=== PATIENT | female | born 1965 | race Caucasian/White ===

== ENCOUNTER 2025-06-22 14:54 | Inpatient (IN) | payer MEDICARE, OTHER ==
[~2025-06-22] VITALS: Ht 167.6 cm; Wt 90.1 kg
[2025-06-22] VITALS (13 sets, daily range): BP systolic 96–137; BP diastolic 54–74; PULSE 56–96; RESP 13–18; TEMP 98.7; O2SAT 63–97
[2025-06-22] MEDS ORDERED: SODIUM BICARBONATE 50 MEQ/50 ML VIAL ONE (15:01)
[2025-06-22] MEDS ORDERED: TICAGRELOR 90 MG TABLET ONE (15:01)
[2025-06-22] MEDS ORDERED: ATORVASTATIN CALCIUM 40 MG TABLET ONE (15:01)
[2025-06-22] MEDS ORDERED: IOHEXOL 300 MG/ML 100 ML VIAL ONE (15:01)
[2025-06-22] MEDS ORDERED: LIDOCAINE/PF 1% 30 ML VIAL ONE (15:01)
[2025-06-22] MEDS ORDERED: HEPARIN SODIUM,PORCINE 5,000 UNITS/ML VIAL ONE (15:01)
[2025-06-22] MEDS ORDERED: ASPIRIN 81 MG CHEWABLE TABLET ONE (15:02)
[2025-06-22] MEDS: HEPARIN SODIUM,PORCINE 5,000 UNITS/ML VIAL IVP ONE (15:07)
[2025-06-22] MEDS: ATORVASTATIN CALCIUM 40 MG TABLET PO ONE (15:07)
[2025-06-22] MEDS: TICAGRELOR 90 MG TABLET PO ONE (15:07)
[2025-06-22 15:13] LABS: PLATELET COUNT (AUTO) 274 K/uL (150-450); RED BLOOD CELL COUNT(AUTO) 4.47 MIL/uL (4.00-5.20); RED CELL DISTRIBUTION WIDTH 15.3 % (11.5-14.5); WHITE BLOOD COUNT (AUTO) 15.6 K/uL (4.5-11.0)
[2025-06-22 15:24] LABS: CALCIUM, TOTAL 8.9 mg/dL (8.8-10.5); CREATININE 0.78 mg/dL (0.60-1.30); GLOMERULAR FILTR. RATE CALC > 60 mL/min (>60); GLUCOSE,RANDOM 98 mg/dL (70-110); SODIUM SERUM 142 mmol/L (136-145); UREA NITROGEN, BLOOD 14 mg/dL (7-18)
[2025-06-22 15:28] LABS: ASPARTATE AMINOTRANSFERASE 12.0 U/L (15-37); CREATINE KINASE, TOTAL ONLY 50.0 U/L (26-192); TOTAL PROTEIN, SERUM 7.3 g/dL (6.4-8.2)
[2025-06-22 15:32] LABS: TROPONIN I-HIGH SENSITIVITY 17 ng/L (<51)
[2025-06-22] MEDS: IOHEXOL 300 MG/ML 100 ML VIAL IARTER ONE ×2 (15:47→15:55)
[2025-06-22] MEDS: LIDOCAINE 1% 30 ML/SOD BICARB 8.4% 4 ML SQ ONE (15:47)
[2025-06-22] MEDS: HEPARIN SODIUM,PORCINE 1,000 UNITS/ML 10 ML VIAL IVP ONE ×3 (15:48→16:13)
[2025-06-22] MEDS: HEPARIN SODIUM 1000 UNITS/NS 1,000 ML IARTER ONE (15:48)
[2025-06-22] MEDS ORDERED: DEXTROSE 50%-WATER 25 GM/50 ML SYRINGE IVP PRN (16:15)
[2025-06-22] MEDS ORDERED: ACETAMINOPHEN 325 MG TABLET PO PRN (16:15)
[2025-06-22] MEDS ORDERED: ONDANSETRON HCL 4 MG/2 ML VIAL IVP PRN (16:15)
[2025-06-22] MEDS ORDERED: MORPHINE SULFATE 2 MG/ML SYRINGE IVP PRN (16:15)
[2025-06-22] MEDS ORDERED: INSULIN LISPRO 100 UNITS/ML SQ PRN (16:15)
[2025-06-22 17:16] LABS: CHOL/HDL RATIO 3.3 (3.9-5.7); LDL CHOL (CALC.) 86.0 mg/dL (0-130)
[2025-06-22 18:50] LABS: GLUCOMETER DEV NAME(LOC) ICUN.6; GLUCOSE,POINT OF CARE 109 MG/DL (70-110)
[2025-06-22] MEDS ORDERED: POTASSIUM CHL 10 MEQ/WATER 50 ML IV PRN (19:00)
[2025-06-22] MEDS ORDERED: POTASSIUM CHLORIDE 20 MEQ ER TABLET PO PRN (19:00)
[2025-06-22] MEDS: POTASSIUM CHLORIDE 20 MEQ ER TABLET PO PRN (19:44)
[2025-06-22 21:20] LABS: GLUCOMETER DEV NAME(LOC) ICU.S7; GLUCOSE,POINT OF CARE 106 MG/DL (70-110)
[2025-06-22] MEDS: DOCUSATE SODIUM 100 MG CAPSULE PO SCH (22:09)
[2025-06-22] MEDS: TICAGRELOR 90 MG TABLET PO SCH (22:09)
[2025-06-22] MEDS: CHLORHEXIDINE GLUCONATE 2% TOWELETTE [2'S/6'S] TP SCH (22:10)
[2025-06-23] VITALS (14 sets, daily range): BP systolic 109–131; BP diastolic 68–83; PULSE 58–79; RESP 15–21; TEMP 98–99.2; O2SAT 95–100
[2025-06-23 05:55] LABS: PLATELET COUNT (AUTO) 192 K/uL (150-450); RED BLOOD CELL COUNT(AUTO) 4.14 MIL/uL (4.00-5.20); RED CELL DISTRIBUTION WIDTH 15.4 % (11.5-14.5); WHITE BLOOD COUNT (AUTO) 9.5 K/uL (4.5-11.0)
[2025-06-23 06:15] LABS: ASPARTATE AMINOTRANSFERASE 40 U/L (15-37); CALCIUM, TOTAL 8.5 mg/dL (8.8-10.5); CREATININE 0.64 mg/dL (0.60-1.30); GLOMERULAR FILTR. RATE CALC > 60 mL/min (>60); GLUCOSE,RANDOM 90 mg/dL (70-110); SODIUM SERUM 141 mmol/L (136-145); TOTAL PROTEIN, SERUM 6.5 g/dL (6.4-8.2); UREA NITROGEN, BLOOD 11 mg/dL (7-18)
[2025-06-23 06:20] LABS: TROPONIN I-HIGH SENSITIVITY 12893 ng/L (<51)
[2025-06-23 07:20] LABS: GLUCOMETER DEV NAME(LOC) ICUN.6; GLUCOSE,POINT OF CARE 97 MG/DL (70-110)
[2025-06-23] MEDS: PANTOPRAZOLE SODIUM 40 MG/VIAL IVP SCH (09:07)
[2025-06-23] MEDS: ASPIRIN 81 MG CHEWABLE TABLET PO SCH (09:07)
[2025-06-23] MEDS: ATORVASTATIN CALCIUM 40 MG TABLET PO SCH (09:07)
[2025-06-23] MEDS: LOSARTAN POTASSIUM 25 MG TABLET PO SCH (09:09)
[2025-06-23 12:11] LABS: GLUCOMETER DEV NAME(LOC) ICUN.6; GLUCOSE,POINT OF CARE 95 MG/DL (70-110)
[2025-06-23 18:05] LABS: GLUCOMETER DEV NAME(LOC) 5N.2C; GLUCOSE,POINT OF CARE 119 MG/DL (70-110)
[2025-06-24 04:03] VITALS: BP 109/66; PULSE 75; RESP 17; TEMP 98.7; O2SAT 98
[2025-06-24 04:21] LABS: GLUCOMETER DEV NAME(LOC) 5N.2C; GLUCOSE,POINT OF CARE 121 MG/DL (70-110)
[2025-06-24 06:31] LABS: PLATELET COUNT (AUTO) 198 K/uL (150-450); RED BLOOD CELL COUNT(AUTO) 4.46 MIL/uL (4.00-5.20); RED CELL DISTRIBUTION WIDTH 15.5 % (11.5-14.5); WHITE BLOOD COUNT (AUTO) 10.1 K/uL (4.5-11.0)
[2025-06-24 06:47] LABS: CALCIUM, TOTAL 8.5 mg/dL (8.8-10.5); CREATININE 0.72 mg/dL (0.60-1.30); GLOMERULAR FILTR. RATE CALC > 60 mL/min (>60); GLUCOSE,RANDOM 89 mg/dL (70-110); SODIUM SERUM 141 mmol/L (136-145); UREA NITROGEN, BLOOD 11 mg/dL (7-18)
[2025-06-24 07:31] VITALS: BP 114/82; PULSE 74; RESP 18; TEMP 98; O2SAT 97
[2025-06-24] MEDS ORDERED: ASPI-1450 PO (11:11)
[2025-06-24] MEDS ORDERED: ATOR40TA28 PO (11:12)
[2025-06-24] MEDS ORDERED: TICA90TA PO (11:12)
[2025-06-24] MEDS ORDERED: LOSA-381 PO (11:13)
[2025-06-24 11:24] VITALS: BP 122/73; PULSE 70; RESP 18; TEMP 98; O2SAT 98
[2025-06-24 20:21] LABS: GLUCOMETER DEV NAME(LOC) 5N.2C; GLUCOSE,POINT OF CARE 100 MG/DL (70-110)
== END 2025-06-24 12:05 | disposition home or self-care (01) | DRG 322 ==
LOC: EMS 14:54 → EDH 16:10 → ICU 17:00 → 5N 06-23 14:15
PROVIDERS: ADMIT Internal Medicine; ATTEND Internal Medicine
PROC: 02703DZ Dilation of Coronary Artery, One Artery with Intraluminal Device, Percutaneous Approach (ICD-10-PCS; principal; 2025-06-22)
PROC: 4A023N7 Measurement of Cardiac Sampling and Pressure, Left Heart, Percutaneous Approach (ICD-10-PCS; 2025-06-22)
PROC: B2111ZZ Fluoroscopy of Multiple Coronary Arteries using Low Osmolar Contrast (ICD-10-PCS; 2025-06-22)
PROC: B2151ZZ Fluoroscopy of Left Heart using Low Osmolar Contrast (ICD-10-PCS; 2025-06-22)
PROC: 5A09357 Assistance with Respiratory Ventilation, Less than 24 Consecutive Hours, Continuous Positive Airway Pressure (ICD-10-PCS; 2025-06-22)
DX: I21.09 ST elevation (STEMI) myocardial infarction involving other coronary artery of anterior wall (principal); E11.9 Type 2 diabetes mellitus without complications; E66.9 Obesity, unspecified; I25.10 Atherosclerotic heart disease of native coronary artery without angina pectoris; I10 Essential (primary) hypertension; E78.00 Pure hypercholesterolemia, unspecified; J45.909 Unspecified asthma, uncomplicated; Z95.5 Presence of coronary angioplasty implant and graft; Z83.3 Family history of diabetes mellitus; Z68.32 Body mass index [BMI] 32.0-32.9, adult
CPT/HCPCS: 71045; 80048; 80053; 80061; 80076; 82550; 82962; 83036; 83880; 84484; 85025; 85610; 85730; 87081; 92920; 92928; 93005; 93306; 94660; 96372; 96374; 96376; 99291; J1644; J2470; J3490; Q9967; 36415-L1; 36415-TC